=== PATIENT | female | born 1995 | race Hispanic/Latino ===

== ENCOUNTER 2021-01-25 22:18 | Emergency (ER) | payer OTHER, SELFPAY ==
[2021-01-25 22:21] VITALS: BP 124/66; PULSE 97; RESP 18; TEMP 36.9; O2SAT 100
--- NOTE | 2021-01-26 00:26 | ED.ALLEREA ---
HPI - Allergic Reaction General Chief complaint: Allergic Reaction Stated complaint: allergic reaction Time Seen by Provider: 01/26/21 00:07 History of Present Illness HPI narrative: 25 yo female w/ h/o abena presents to the ED for a rash. intensely pruritic rash for about the past 5 hours. No known exposure. She is in from out of town and staying at her mother's house. She had a similar, but less severe rash last time she was in town. She was recently restarted medication for her scleroderma, she has tolerated it in the past. Recent hospitalisation for hepatitis related to a different medication, which she is no longer taking. No lip, tongue, or throat swelling. No fever, chills, weakness, or other systemic symptoms. Related Data Allergies Allergy/AdvReac Type Severity Reaction Status Date / Time No Known Allergies Allergy Verified 03/12/17 00:52 Review of Systems Review of Systems: All systems reviewed & are unremarkable except as noted in HPI and below Constitutional: Constitutional: Denies chills, Denies fever(s) and Denies weakness Eyes: Eyes: Denies change in vision ENT: Reports as per HPI Cardiovascular: Cardiovascular: Denies chest pain Respiratory: Respiratory: Denies dyspnea Gastrointestinal: Gastrointestinal: Denies nausea Genitourinary: Genitourinary: Reports no additional female genitourinary complaints Musculoskeletal: Musculoskeletal: Reports no additional musculoskeletal complaints Integumentary/Breasts: Skin/Breast: Reports as per HPI Neurologic: Denies dizziness and Denies weakness Allergic/Immunologic: Allergic/Immunologic: Reports as per HPI [facility] Past Medical History Medical History (Updated 02/04/21 @ 12:06 by Arnaldo Sorto MD) Scleroderma Social History Social History (Updated 02/04/21 @ 12:06 by Arnaldo Sorto MD) Smoking status: Never smoker Gender identity (if verbalized by the patient): Female Exam Const: General: healthy appearing, no acute distress and alert Nutritional Appearance: well nourished Orientation/consciousness: patient oriented x3 HENMT: Mouth: Yes Normal oral and palatal mucosa present and Yes lip normal Other: papular mildly erythematous rash to the face and neck Eyes: Conjunctivae: conjunctivae normal Pupils: Equal, round and reactive pupils present EOM: EOMs intact bilaterally Neck: Neck: no lymphadenopathy Resp: Effort & Inspection: normal respiratory effort Auscultation: clear to auscultation bilaterally Cardio: Rate: regular rate Rhythm: regular rhythm Skin: Other: scarring to bilateral arms Neuro: General: patient oriented x3, moves all extremities and no focal motor deficits Speech: normal speech Gait exam (Neuro): Normal gait present Extrem: General: normal to inspection Psych: Appearance: grossly normal and well kempt Mental Status: mental status grossly normal Affect: normal affect Attitude: cooperative Course Vital Signs Vital signs: Vital Signs Temperature 36.9 C 01/25/21 22:21 Pulse Rate 97 01/25/21 22:21 Respiratory Rate 18 01/25/21 22:21 Blood Pressure 124/66 01/25/21 22:21 Pulse Oximetry 100 01/25/21 22:21 Temperature 36.9 C 01/25/21 22:21 Pulse Rate 89 01/26/21 02:08 Respiratory Rate 18 01/26/21 02:08 Blood Pressure 97/81 L 01/26/21 02:08 Pulse Oximetry 98 01/26/21 02:08 MDM - Allergic Reaction MDM Narrative Medical decision making narrative: No sign of severe allergic reaction. Symptoms are most likely the result of environmental exposure. Cannot rule out the possibility that it is related to restarting her medication, but unlikely. 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 Differential Diagnosis Differential diagnosis: Likely allergic reaction, contact dermatitis, adverse reaction to drug and urticaria; Unlikely anaphylaxis Medical Records Attestation: I reviewed the patient's medical records. Discharge Plan Discharge Cli
[2021-01-26] MEDS: predniSONE 20 MG TABLET 40 MG PO (00:42)
[2021-01-26] MEDS: diphenhydrAMINE HCl CAP 25 MG CAPSULE 50 MG PO (00:43)
[2021-01-26 02:08] VITALS: BP 97/81; PULSE 89; RESP 18; O2SAT 98
== END 2021-01-26 02:10 | disposition home or self-care (01) ==
PROVIDERS: Emergency Provider Emergency Medicine
DX: T78.40XA Allergy, unspecified, initial encounter (principal); M34.9 Systemic sclerosis, unspecified
CPT/HCPCS: 99283; A9270; J7512